=== PATIENT | male | born 1955 | race African-American/Black ===

== ENCOUNTER 2021-09-17 09:57 | Outpatient (CLI) | payer MEDICARE, MEDICAID | END 2021-09-17 09:58 | disposition home or self-care (01) | LOC: BICULT 09:57 | PROVIDERS: ATTEND Internal Medicine Nephrology | DX: I12.9 Hypertensive chronic kidney disease with stage 1 through stage 4 chronic kidney disease, or unspecified chronic kidney disease (principal); N18.30 Chronic kidney disease, stage 3 unspecified; N28.1 Cyst of kidney, acquired | CPT/HCPCS: 76770 ==

== ENCOUNTER 2022-12-01 12:45 | Emergency (ER) | payer MEDICARE, OTHER ==
[2022-12-01] MEDS ORDERED: Ondansetron PF 4 MG/2 ML Vial ONE (13:40)
[2022-12-01] MEDS ORDERED: Morphine 4 MG/ML VIAL ONE (13:40)
[2022-12-01 13:59] LABS: #Basophils 0.1 thou/uL (0.0-0.2); #Eosinphils 0.1 thou/uL (0.0-0.7); #Monocytes 0.6 thou/uL (0.11-0.59); #Neutrophils 7.1 thou/uL (1.40-6.50); %Basophils 0.8 % (0.0-1.0); %Lymphocytes 14.6 % (21.0-51.0); %Monocytes 6.8 % (0.0-10.0); %Neutrophils 76.4 % (42.0-75.0); Hemoglobin 13.1 g/dL (14.0-18.0); Mean Corpuscular HGB CONC 32.9 g/dL (32.0-36.0); Mean Corpuscular Hemoglobin 34.5 pg (27.0-31.0); Mean Corpuscular Volume 104.7 fl (78.0-98.0); Mean Platelet Volume 9.9 fL (7.4-10.4); Platelet Count 199 10x3/uL (130-400); RBC Distribution Width 13.9 % (11.5-14.5); White Blood Cell (WBC) Count 9.3 10x3/uL (4.8-10.8)
[2022-12-01 14:24] LABS: ALT (SGPT) 16 U/L (8-55); AST (SGOT) 27 U/L (5-34); Albumin 3.1 g/dL (3.4-4.8); Alkaline Phosphatase 87 U/L (40-110); Anion Gap 15 mmol/L (10-20); BUN (Urea Nitrogen) 21 mg/dL (8.4-25.7); Bilirubin, Total 0.7 mg/dL (0.2-1.2); Calc. Creatinine Clearance 0 mL/min (70-130); Calcium 8.8 mg/dL (7.8-10.44); Carbon Dioxide 19 mmol/L (23-31); Chloride 101 mmol/L (98-107); Estimated GFR 76; Globulin 4.6 g/dL (2.4-3.5); Glucose 85 mg/dL (80-115); Potassium 3.8 mmol/L (3.5-5.1); Protein, Total 7.7 g/dL (5.8-8.1); Sodium 131 mmol/L (136-145)
[2022-12-01 14:25] LABS: Acetaminophen Less than 10 mcg/mL (10.0-30.0); Alcohol 45.3 mg/dL (Less than 10); Salicylate Less than 8.0 mg/dL (15.0-30.0)
[2022-12-01] MEDS ORDERED: Diazepam 10 MG/2 ML SYRINGE ONE (17:19)
== END 2022-12-01 19:30 | disposition home or self-care (01) ==
LOC: ERS 12:45
DX: S50.02XA Contusion of left elbow, initial encounter (principal); S70.02XA Contusion of left hip, initial encounter; M25.562 Pain in left knee; I10 Essential (primary) hypertension; E87.1 Hypo-osmolality and hyponatremia; I12.9 Hypertensive chronic kidney disease with stage 1 through stage 4 chronic kidney disease, or unspecified chronic kidney disease; N18.30 Chronic kidney disease, stage 3 unspecified; F17.210 Nicotine dependence, cigarettes, uncomplicated; Z79.899 Other long term (current) drug therapy
CPT/HCPCS: 36415; 80053; 80307; 84484; 85025; 93005; 96361; 96374; 96375; J2270; J2405; J3360

== ENCOUNTER 2023-05-31 11:07 | Inpatient (IN) | payer MEDICARE, MEDICAID ==
[2023-05-31] MEDS ORDERED: Iopamidol-370 76% 500 ML MDV (1 ML CHARGE) ONE (11:19)
[2023-05-31] MEDS ORDERED: Folic Acid 1 MG TAB ONE (11:27)
[2023-05-31] MEDS ORDERED: Thiamine HCl 200 MG/2 ML VIAL ONE (11:28)
[2023-05-31 11:55] LABS: #Eosinphils 0.1 thou/uL (0.0-0.7); #Monocytes 0.5 thou/uL (0.11-0.59); #Neutrophils 6.7 thou/uL (1.40-6.50); %Basophils 0.3 % (0.0-1.0); %Eosinophils 0.9 % (0.0-10.0); %Monocytes 5.8 % (0.0-10.0); %Neutrophils 75.4 % (42.0-75.0); Hematocrit 47.2 % (42.0-52.0); Hemoglobin 16.2 g/dL (14.0-18.0); Mean Corpuscular HGB CONC 34.3 g/dL (32.0-36.0); Mean Corpuscular Hemoglobin 33.2 pg (27.0-31.0); Mean Corpuscular Volume 96.7 fl (78.0-98.0); Mean Platelet Volume 9.3 fL (7.4-10.4); Platelet Count 133 10x3/uL (130-400); RBC Distribution Width 12.3 % (11.5-14.5); Red Blood Cell (RBC) Count 4.88 mill/uL (4.70-6.10); White Blood Cell (WBC) Count 8.9 10x3/uL (4.8-10.8)
[2023-05-31 11:55] LABS: Bilirubin Negative (Negative); Blood, Urine Negative (Negative); Glucose, Urine (Dipstick) Negative (Negative); Ketone, Urine Negative (Negative); Leukocyte Moderate (Negative); Nitrite Negative (Negative); Protein, Urine (Dipstick) Negative (Neg-Trace); Urobilinogen 0.2 mg/dL (Less than 2)
[2023-05-31 12:00] LABS: Clarity Hazy (Clear)
[2023-05-31 12:03] LABS: Bacteria/HPF 2+ HPF (None Seen); CAUTI Indications for Culture Alt mental st,lethar; RBC/HPF None Seen HPF (0-3); Squamous Epithelial 0-3 HPF (0-3)
[2023-05-31 12:04] LABS: Urine Culture Reflex Yes Yes
[2023-05-31 12:14] LABS: Amphetamine Not Detected (NotDetected); Barbiturates Screen Not Detected (NotDetected); Benzodiazepine Screen Not Detected (NotDetected); Cocaine Metabolite Screen Not Detected (NotDetected); Methadone Not Detected (NotDetected); Methamphetamine Not Detected (NotDetected); Opiate Screen Not Detected (NotDetected); Oxycodone Screen Not Detected (NotDetected); Phencyclidine (PCP) Not Detected (NotDetected); THC/Cannabinoid Screen Not Detected (NotDetected); Tricyclic Screen Not Detected (NotDetected)
[2023-05-31 12:15] LABS: Troponin I Less than 0.010 ng/mL (< 0.028)
[2023-05-31 12:16] LABS: ALT (SGPT) 18 U/L (8-55); AST (SGOT) 28 U/L (5-34); Albumin 3.3 g/dL (3.4-4.8); Alkaline Phosphatase 81 U/L (40-110); Anion Gap 17 mmol/L (10-20); BUN (Urea Nitrogen) 97 mg/dL (8.4-25.7); Bilirubin, Total 0.5 mg/dL (0.2-1.2); Calc. Creatinine Clearance 0 mL/min (70-130); Calcium 8.8 mg/dL (7.8-10.44); Carbon Dioxide 17 mmol/L (23-31); Chloride 104 mmol/L (98-107); Estimated GFR 34; Globulin 4.5 g/dL (2.4-3.5); Glucose 84 mg/dL (80-115); Lipase 41 U/L (8-78); Magnesium 1.8 mg/dL (1.6-2.6); Phosphorus 3.6 mg/dL (2.3-4.7); Potassium 4.4 mmol/L (3.5-5.1); Protein, Total 7.8 g/dL (5.8-8.1); Sodium 134 mmol/L (136-145)
[2023-05-31 12:18] LABS: Acetaminophen Less than 10 mcg/mL (10.0-30.0); Alcohol 21.1 mg/dL (Less than 10); Salicylate Less than 8.0 mg/dL (15.0-30.0)
[2023-05-31] MEDS ORDERED: Lorazepam 1 MG TAB PO PRN (13:50)
[2023-05-31] MEDS ORDERED: Lorazepam 2 MG/ML VIAL IVPB PRN (13:50)
[2023-05-31] MEDS ORDERED: Acetaminophen 325 MG TAB PO PRN (13:50)
[2023-05-31] MEDS ORDERED: Ondansetron PF 4 MG/2 ML Vial IVP PRN (13:50)
[2023-05-31] MEDS ORDERED: Ondansetron ODT 4 MG TAB PO PRN ×2 (13:50)
[2023-05-31] MEDS ORDERED: cefTRIAXone\\ROCEPHIN 1 GM in Sodium Chloride 0.9% 100 ML IVPB SCH (14:00)
[2023-05-31] MEDS ORDERED: Electrolyte Replacement Protocol 1 EACH FS SCH (14:00)
[2023-05-31] MEDS ORDERED: Lactated Ringer's 500 ML IV SCH (14:00)
[2023-05-31] MEDS ORDERED: Lorazepam 1 MG TAB PO SCH (14:00)
[2023-05-31 14:59] LABS: Lactic Acid 1.8 mmol/L (0.5-2.2)
[2023-05-31] MEDS ORDERED: Mineral Oil ENEMA PR SCH (15:00)
[2023-05-31] MEDS ORDERED: Polyethylene Glycol 3350 17 GM Packet PO SCH (15:00)
[2023-05-31 15:16] LABS: Phosphorus 3.8 mg/dL (2.3-4.7)
[2023-05-31] MEDS ORDERED: Multivit, Therapeutic 1 TAB PO SCH (15:30)
[2023-05-31 15:36] LABS: Magnesium 1.7 mg/dL (1.6-2.6)
[2023-05-31] MEDS ORDERED: cefTRIAXone (ROCEPHIN) 2 GM VIAL ONE (15:54)
[2023-05-31] MEDS ORDERED: Sodium Chloride 0.9% 100 ML ONE (15:54)
[2023-05-31] MEDS ORDERED: Magnesium 2 GM/50 ML(in water) 2 GM in Premix 1 BAG IVPB SCH (16:15)
[2023-05-31] MEDS ORDERED: Electrolyte Replacement Protocol FS PRN (16:15)
[2023-05-31] MEDS ORDERED: Nystatin 100,000 Units/mL UDCUP SSW SCH (17:00)
[2023-05-31] MEDS: Lactated Ringer's 1,000 ML IV SCH (17:14)
[2023-05-31] MEDS ORDERED: Lidocaine Jelly 2% Urojet 10 ML ONE (17:55)
[2023-05-31] MEDS: Thiamine HCl 500 MG, Admixture Fee 1 EACH in Sodium Chloride 0.9% 250 ML 250 ML IVPB SCH (18:08)
[2023-05-31 18:35] LABS: SARS-CoV-2 NAA Rapid Test Not Detected (NotDetected)
[2023-05-31] MEDS ORDERED: Lidocaine 2% 6 ML (Jelly) SYR TOP SCH (19:30)
[2023-05-31] MEDS ORDERED: Famotidine 20 MG TAB PO SCH (21:00)
[2023-05-31] MEDS ORDERED: Cholecalciferol 1,000 UNITS (25 MCG) TAB PO SCH (21:00)
[2023-05-31] MEDS ORDERED: pyridOXINE 50 MG (B6) TAB PO SCH (21:00)
[2023-05-31] MEDS: Famotidine/PF 20 mg/2ml Vial SLOW IVP SCH (21:03)
[2023-05-31] MEDS: Nystatin 500,000 UNITS/5 ML UDCUP SSW SCH (21:12)
[2023-06-01] MEDS: Lactated Ringer's 1,000 ML IV SCH (00:24)
[2023-06-01] MEDS ORDERED: Ipratropium/Albuterol 3 ML NEB NEB PRN (00:34)
[2023-06-01] MEDS ORDERED: Dextrose 5 % And 0.9 % NaCl 1,000 ML IV SCH (00:45)
[2023-06-01] MEDS ORDERED: Fleet Saline Enema 133 ML BOT PR SCH (00:45)
[2023-06-01] MEDS: Nicotine 14 MG PATCH TD SCH ×2 (01:38→18:12)
[2023-06-01] MEDS: Thiamine HCl 500 MG, Admixture Fee 1 EACH in Sodium Chloride 0.9% 250 ML 250 ML IVPB SCH ×3 (03:10→18:12)
[2023-06-01 06:32] LABS: #Eosinphils 0.1 thou/uL (0.0-0.7); #Monocytes 0.4 thou/uL (0.11-0.59); %Basophils 0.3 % (0.0-1.0); %Eosinophils 0.6 % (0.0-10.0); %Lymphocytes 12.4 % (21.0-51.0); %Monocytes 5.1 % (0.0-10.0); %Neutrophils 81.3 % (42.0-75.0); Hematocrit 39.3 % (42.0-52.0); Mean Corpuscular HGB CONC 33.3 g/dL (32.0-36.0); Mean Corpuscular Hemoglobin 32.3 pg (27.0-31.0); Mean Platelet Volume 10.1 fL (7.4-10.4); Platelet Count 150 10x3/uL (130-400); RBC Distribution Width 12.5 % (11.5-14.5); Red Blood Cell (RBC) Count 4.05 mill/uL (4.70-6.10); White Blood Cell (WBC) Count 8.7 10x3/uL (4.8-10.8)
[2023-06-01 06:34] LABS: Hemoglobin 13.1 g/dL (14.0-18.0)
[2023-06-01 08:03] LABS: HIV (1/2) Antibody/Antigen Non-Reactive (NonReactive)
[2023-06-01 08:09] LABS: ALT (SGPT) 15 U/L (8-55); AST (SGOT) 24 U/L (5-34); Albumin 2.7 g/dL (3.4-4.8); Alkaline Phosphatase 66 U/L (40-110); Anion Gap 18 mmol/L (10-20); BUN (Urea Nitrogen) 74 mg/dL (8.4-25.7); Bilirubin, Total 0.4 mg/dL (0.2-1.2); Calc. Creatinine Clearance 19 mL/min (70-130); Calcium 8.2 mg/dL (7.8-10.44); Carbon Dioxide 16 mmol/L (23-31); Chloride 109 mmol/L (98-107); Estimated GFR 41; Globulin 3.5 g/dL (2.4-3.5); Glucose 81 mg/dL (80-115); Magnesium 2.3 mg/dL (1.6-2.6); Phosphorus 4.8 mg/dL (2.3-4.7); Potassium 3.6 mmol/L (3.5-5.1); Protein, Total 6.2 g/dL (5.8-8.1); Sodium 139 mmol/L (136-145)
[2023-06-01] MEDS: Nystatin 500,000 UNITS/5 ML UDCUP SSW SCH ×4 (08:40→20:24)
[2023-06-01] MEDS ORDERED: Ascorbic Acid 500 mg Chewable Tablet PO SCH (09:00)
[2023-06-01] MEDS ORDERED: Multivit, Therapeutic 1 TAB PO SCH (09:00)
[2023-06-01] MEDS ORDERED: Aspirin 81 mg Enteric Coated Tablet PO SCH (09:00)
[2023-06-01] MEDS ORDERED: Folic Acid 1 MG TAB PO SCH (09:00)
[2023-06-01] MEDS ORDERED: Polyethylene Glycol 3350 17 GM Packet PO SCH (09:00)
[2023-06-01] MEDS ORDERED: Enoxaparin 40 MG (0.4 mL) SYRINGE SC SCH (09:00)
[2023-06-01] MEDS ORDERED: Lorazepam 2 MG/ML VIAL SLOW IVP PRN (09:19)
[2023-06-01 10:59] LABS: Syphilis Antibody Nonreactive (Nonreactive); Syphilis Antibody Index 0.09 S/CO (<1.00 Non-Reactive)
[2023-06-01] MEDS ORDERED: Lorazepam 1 MG TAB PO PRN (13:50)
[2023-06-01] MEDS: Sodium Bicarbonate Tab 325 MG TAB PO SCH ×2 (15:01→20:24)
[2023-06-01] MEDS: D5W-AA 4.25% with LYTES 1,000 ML IV SCH (16:57)
[2023-06-01] MEDS: cefTRIAXone\\ROCEPHIN 2 GM in Sodium Chloride 0.9% 100 ML IVPB SCH (16:57)
[2023-06-02] MEDS: Thiamine HCl 500 MG, Admixture Fee 1 EACH in Sodium Chloride 0.9% 250 ML 250 ML IVPB SCH ×2 (01:42→13:28)
[2023-06-02 04:18] LABS: #Eosinphils 0.2 thou/uL (0.0-0.7); #Monocytes 0.4 thou/uL (0.11-0.59); #Neutrophils 3.9 thou/uL (1.40-6.50); %Basophils 0.3 % (0.0-1.0); %Eosinophils 2.5 % (0.0-10.0); %Lymphocytes 26.4 % (21.0-51.0); %Neutrophils 64.5 % (42.0-75.0); Hematocrit 35.7 % (42.0-52.0); Hemoglobin 11.8 g/dL (14.0-18.0); Mean Corpuscular HGB CONC 33.1 g/dL (32.0-36.0); Mean Corpuscular Hemoglobin 32.3 pg (27.0-31.0); Mean Corpuscular Volume 97.8 fl (78.0-98.0); Mean Platelet Volume 9.9 fL (7.4-10.4); Platelet Count 150 10x3/uL (130-400); RBC Distribution Width 12.7 % (11.5-14.5); Red Blood Cell (RBC) Count 3.65 mill/uL (4.70-6.10)
[2023-06-02 04:28] LABS: Campy jejuni + coli by PCR Negative (Negative); STEC Shiga Toxin 1+2 Negative (Negative); Salmonella spp. by PCR Negative (Negative); Shigella spp + EIEC by PCR Negative (Negative)
[2023-06-02 05:04] LABS: Phosphorus 3.6 mg/dL (2.3-4.7)
[2023-06-02 05:06] LABS: ALT (SGPT) 11 U/L (8-55); AST (SGOT) 18 U/L (5-34); Albumin 2.5 g/dL (3.4-4.8); Alkaline Phosphatase 55 U/L (40-110); Anion Gap 11 mmol/L (10-20); BUN (Urea Nitrogen) 59 mg/dL (8.4-25.7); Bilirubin, Total 0.3 mg/dL (0.2-1.2); Calc. Creatinine Clearance 22 mL/min (70-130); Calcium 8.1 mg/dL (7.8-10.44); Carbon Dioxide 18 mmol/L (23-31); Chloride 115 mmol/L (98-107); Estimated GFR 48; Globulin 3.3 g/dL (2.4-3.5); Glucose 100 mg/dL (80-115); Magnesium 1.7 mg/dL (1.6-2.6); Potassium 3.5 mmol/L (3.5-5.1); Protein, Total 5.8 g/dL (5.8-8.1); Sodium 140 mmol/L (136-145)
[2023-06-02] MEDS: D5W-AA 4.25% with LYTES 1,000 ML IV SCH ×2 (05:44→16:33)
[2023-06-02] MEDS ORDERED: Magnesium 2 GM/50 ML(in water) 2 GM in Premix 1 BAG IVPB SCH (08:00)
[2023-06-02] MEDS: Aspirin 300 MG Suppository PR SCH (09:08)
[2023-06-02] MEDS: Nystatin 500,000 UNITS/5 ML UDCUP SSW SCH ×4 (09:08→20:37)
[2023-06-02] MEDS: Sodium Bicarbonate Tab 325 MG TAB PO SCH ×3 (09:09→20:37)
[2023-06-02] MEDS: Potassium Chloride 20 MEQ in Premix 1 BAG IVPB SCH ×2 (09:09→10:10)
[2023-06-02] MEDS ORDERED: Lorazepam 1 MG TAB PO PRN (13:50)
[2023-06-02] MEDS ORDERED: Lorazepam 0.5 MG TAB PO SCH (14:00)
[2023-06-02] MEDS: cefTRIAXone\\ROCEPHIN 2 GM in Sodium Chloride 0.9% 100 ML IVPB SCH (15:23)
[2023-06-02 16:14] LABS: Potassium 4.1 mmol/L (3.5-5.1)
[2023-06-02] MEDS: Nicotine 14 MG PATCH TD SCH (18:35)
[2023-06-02] MEDS: Famotidine/PF 20 mg/2ml Vial SLOW IVP SCH (20:45)
[2023-06-03] MEDS: D5W-AA 4.25% with LYTES 1,000 ML IV SCH ×2 (05:25→18:42)
[2023-06-03 07:58] LABS: #Eosinphils 0.2 thou/uL (0.0-0.7); #Monocytes 0.5 thou/uL (0.11-0.59); #Neutrophils 5.4 thou/uL (1.40-6.50); %Basophils 0.4 % (0.0-1.0); %Eosinophils 2.4 % (0.0-10.0); %Lymphocytes 23.6 % (21.0-51.0); %Neutrophils 67.1 % (42.0-75.0); Hematocrit 41.7 % (42.0-52.0); Hemoglobin 13.8 g/dL (14.0-18.0); Mean Corpuscular HGB CONC 33.1 g/dL (32.0-36.0); Mean Corpuscular Hemoglobin 32.9 pg (27.0-31.0); Mean Corpuscular Volume 99.5 fl (78.0-98.0); Platelet Count 167 10x3/uL (130-400); RBC Distribution Width 12.6 % (11.5-14.5); Red Blood Cell (RBC) Count 4.19 mill/uL (4.70-6.10)
[2023-06-03 08:18] LABS: Phosphorus 3.8 mg/dL (2.3-4.7)
[2023-06-03 08:22] LABS: ALT (SGPT) 11 U/L (8-55); AST (SGOT) 23 U/L (5-34); Albumin 2.6 g/dL (3.4-4.8); Alkaline Phosphatase 60 U/L (40-110); Anion Gap 14 mmol/L (10-20); BUN (Urea Nitrogen) 57 mg/dL (8.4-25.7); Bilirubin, Total 0.4 mg/dL (0.2-1.2); Calc. Creatinine Clearance 27 mL/min (70-130); Calcium 8.4 mg/dL (7.8-10.44); Carbon Dioxide 17 mmol/L (23-31); Chloride 113 mmol/L (98-107); Estimated GFR 56; Globulin 3.8 g/dL (2.4-3.5); Glucose 96 mg/dL (80-115); Magnesium 2.3 mg/dL (1.6-2.6); Potassium 4.3 mmol/L (3.5-5.1); Protein, Total 6.4 g/dL (5.8-8.1); Sodium 140 mmol/L (136-145)
[2023-06-03] MEDS: Aspirin 300 MG Suppository PR SCH (08:23)
[2023-06-03] MEDS: Sodium Bicarbonate Tab 325 MG TAB PO SCH ×3 (08:23→20:39)
[2023-06-03] MEDS: Nystatin 500,000 UNITS/5 ML UDCUP SSW SCH ×4 (08:23→20:38)
[2023-06-03] MEDS ORDERED: PROPOFOL 20 ML ONE (10:03)
[2023-06-03] MEDS ORDERED: fentaNYL 50 mcg/mL 1 mL Vial ONE (10:53)
[2023-06-03] MEDS: Thiamine HCl 250 MG, Admixture Fee 1 EACH in Sodium Chloride 0.9% 100 ML IVPB SCH (12:18)
[2023-06-03 13:45] VITALS: BMI 12.7
[2023-06-03] MEDS ORDERED: Lorazepam 0.5 MG TAB PO PRN (13:50)
[2023-06-03] MEDS: cefTRIAXone\\ROCEPHIN 2 GM in Sodium Chloride 0.9% 100 ML IVPB SCH (16:27)
[2023-06-03] MEDS: Nicotine 14 MG PATCH TD SCH (18:21)
[2023-06-04] MEDS: D5W-AA 4.25% with LYTES 1,000 ML IV SCH ×2 (06:46→23:40)
[2023-06-04] MEDS: Nystatin 500,000 UNITS/5 ML UDCUP SSW SCH ×3 (09:34→16:31)
[2023-06-04] MEDS: Thiamine HCl 250 MG, Admixture Fee 1 EACH in Sodium Chloride 0.9% 100 ML IVPB SCH (09:58)
[2023-06-04] MEDS: Sodium Bicarbonate Tab 325 MG TAB PO SCH ×3 (09:58→19:58)
[2023-06-04] MEDS: Aspirin 300 MG Suppository PR SCH (10:00)
[2023-06-04 13:22] LABS: #Monocytes 0.6 thou/uL (0.11-0.59); #Neutrophils 10.3 thou/uL (1.40-6.50); %Basophils 0.1 % (0.0-1.0); %Eosinophils 0.1 % (0.0-10.0); %Lymphocytes 7.2 % (21.0-51.0); %Neutrophils 87.2 % (42.0-75.0); Hematocrit 40.4 % (42.0-52.0); Hemoglobin 13.7 g/dL (14.0-18.0); Mean Corpuscular HGB CONC 33.9 g/dL (32.0-36.0); Mean Corpuscular Hemoglobin 32.9 pg (27.0-31.0); Mean Corpuscular Volume 97.1 fl (78.0-98.0); Mean Platelet Volume 10.1 fL (7.4-10.4); Platelet Count 170 10x3/uL (130-400); RBC Distribution Width 12.4 % (11.5-14.5); Red Blood Cell (RBC) Count 4.16 mill/uL (4.70-6.10); White Blood Cell (WBC) Count 11.8 10x3/uL (4.8-10.8)
[2023-06-04 13:43] LABS: Phosphorus 4.1 mg/dL (2.3-4.7)
[2023-06-04 13:45] LABS: ALT (SGPT) 11 U/L (8-55); AST (SGOT) 20 U/L (5-34); Albumin 2.7 g/dL (3.4-4.8); Alkaline Phosphatase 55 U/L (40-110); Anion Gap 13 mmol/L (10-20); BUN (Urea Nitrogen) 58 mg/dL (8.4-25.7); Bilirubin, Total 0.4 mg/dL (0.2-1.2); Calc. Creatinine Clearance 31 mL/min (70-130); Calcium 8.3 mg/dL (7.8-10.44); Carbon Dioxide 20 mmol/L (23-31); Chloride 108 mmol/L (98-107); Estimated GFR 66; Globulin 3.7 g/dL (2.4-3.5); Glucose 94 mg/dL (80-115); Magnesium 1.8 mg/dL (1.6-2.6); Potassium 4.6 mmol/L (3.5-5.1); Protein, Total 6.4 g/dL (5.8-8.1); Sodium 136 mmol/L (136-145)
[2023-06-04] MEDS: Nicotine 14 MG PATCH TD SCH (17:49)
[2023-06-04] MEDS: Famotidine/PF 20 mg/2ml Vial SLOW IVP SCH (20:56)
[2023-06-04] MEDS ORDERED: Magnesium 2 GM/50 ML(in water) 2 GM in Premix 1 BAG IVPB SCH (22:00)
[2023-06-05 05:44] LABS: #Eosinphils 0.1 thou/uL (0.0-0.7); #Monocytes 0.7 thou/uL (0.11-0.59); #Neutrophils 7.1 thou/uL (1.40-6.50); %Basophils 0.1 % (0.0-1.0); %Eosinophils 0.8 % (0.0-10.0); %Lymphocytes 15.6 % (21.0-51.0); %Monocytes 7.3 % (0.0-10.0); %Neutrophils 75.7 % (42.0-75.0); Hemoglobin 13.1 g/dL (14.0-18.0); Mean Corpuscular HGB CONC 33.6 g/dL (32.0-36.0); Mean Corpuscular Hemoglobin 32.9 pg (27.0-31.0); Mean Platelet Volume 10.1 fL (7.4-10.4); Platelet Count 170 10x3/uL (130-400); RBC Distribution Width 12.4 % (11.5-14.5); Red Blood Cell (RBC) Count 3.98 mill/uL (4.70-6.10); White Blood Cell (WBC) Count 9.4 10x3/uL (4.8-10.8)
[2023-06-05 06:27] LABS: ALT (SGPT) 9 U/L (8-55); AST (SGOT) 17 U/L (5-34); Albumin 2.5 g/dL (3.4-4.8); Alkaline Phosphatase 48 U/L (40-110); Anion Gap 14 mmol/L (10-20); BUN (Urea Nitrogen) 59 mg/dL (8.4-25.7); Bilirubin, Total 0.4 mg/dL (0.2-1.2); Calc. Creatinine Clearance 31 mL/min (70-130); Carbon Dioxide 17 mmol/L (23-31); Chloride 109 mmol/L (98-107); Estimated GFR 67; Globulin 3.6 g/dL (2.4-3.5); Glucose 106 mg/dL (80-115); Magnesium 2.3 mg/dL (1.6-2.6); Potassium 4.3 mmol/L (3.5-5.1); Protein, Total 6.1 g/dL (5.8-8.1); Sodium 136 mmol/L (136-145)
[2023-06-05 06:33] LABS: Phosphorus 3.7 mg/dL (2.3-4.7)
[2023-06-05] MEDS: Thiamine HCl 250 MG, Admixture Fee 1 EACH in Sodium Chloride 0.9% 100 ML IVPB SCH (09:37)
[2023-06-05] MEDS: Sodium Bicarbonate Tab 325 MG TAB PO SCH ×3 (09:40→22:21)
[2023-06-05] MEDS: D5W-AA 4.25% with LYTES 1,000 ML IV SCH (11:47)
[2023-06-05] MEDS: Acetaminophen 650 MG Suppository PR PRN ×2 (12:51→22:31)
[2023-06-05] MEDS: Nicotine 14 MG PATCH TD SCH (17:13)
[2023-06-06] MEDS: D5W-AA 4.25% with LYTES 1,000 ML IV SCH ×2 (02:45→16:24)
[2023-06-06 04:38] LABS: #Eosinphils 0.1 thou/uL (0.0-0.7); #Monocytes 0.9 thou/uL (0.11-0.59); #Neutrophils 8.2 thou/uL (1.40-6.50); %Basophils 0.2 % (0.0-1.0); %Eosinophils 0.5 % (0.0-10.0); %Lymphocytes 14.8 % (21.0-51.0); %Monocytes 7.8 % (0.0-10.0); %Neutrophils 75.9 % (42.0-75.0); Hematocrit 37.1 % (42.0-52.0); Hemoglobin 12.8 g/dL (14.0-18.0); Mean Corpuscular HGB CONC 34.5 g/dL (32.0-36.0); Mean Corpuscular Hemoglobin 33.2 pg (27.0-31.0); Mean Corpuscular Volume 96.4 fl (78.0-98.0); Mean Platelet Volume 10.2 fL (7.4-10.4); Platelet Count 219 10x3/uL (130-400); RBC Distribution Width 12.4 % (11.5-14.5); Red Blood Cell (RBC) Count 3.85 mill/uL (4.70-6.10); White Blood Cell (WBC) Count 10.9 10x3/uL (4.8-10.8)
[2023-06-06 05:08] LABS: Phosphorus 3.8 mg/dL (2.3-4.7)
[2023-06-06 05:25] LABS: BUN (Urea Nitrogen) 62 mg/dL (8.4-25.7); Calc. Creatinine Clearance 32 mL/min (70-130); Carbon Dioxide 18 mmol/L (23-31); Chloride 106 mmol/L (98-107); Potassium 4.2 mmol/L (3.5-5.1); Sodium 136 mmol/L (136-145)
[2023-06-06 05:26] LABS: ALT (SGPT) 14 U/L (8-55); AST (SGOT) 24 U/L (5-34); Albumin 2.3 g/dL (3.4-4.8); Alkaline Phosphatase 50 U/L (40-110); Bilirubin, Total 0.4 mg/dL (0.2-1.2); Calcium 7.7 mg/dL (7.8-10.44); Estimated GFR 70; Globulin 3.7 g/dL (2.4-3.5); Glucose 91 mg/dL (80-115); Magnesium 2.1 mg/dL (1.6-2.6)
[2023-06-06 05:29] LABS: Anion Gap 16 mmol/L (10-20)
[2023-06-06] MEDS: Sodium Bicarbonate Tab 325 MG TAB PO SCH ×3 (09:10→20:05)
[2023-06-06] MEDS: Thiamine HCl 250 MG, Admixture Fee 1 EACH in Sodium Chloride 0.9% 100 ML IVPB SCH (09:10)
[2023-06-06] MEDS: Nicotine 14 MG PATCH TD SCH (16:24)
[2023-06-06] MEDS: Famotidine/PF 20 mg/2ml Vial SLOW IVP SCH (20:16)
[2023-06-07] MEDS: Acetaminophen 325 MG TAB PER TUBE PRN (02:03)
[2023-06-07] MEDS: D5W-AA 4.25% with LYTES 1,000 ML IV SCH ×2 (02:11→05:17)
[2023-06-07 04:32] LABS: #Eosinphils 0.3 thou/uL (0.0-0.7); #Monocytes 0.8 thou/uL (0.11-0.59); #Neutrophils 7.5 thou/uL (1.40-6.50); %Basophils 0.1 % (0.0-1.0); %Eosinophils 2.9 % (0.0-10.0); %Lymphocytes 10.8 % (21.0-51.0); %Monocytes 8.2 % (0.0-10.0); %Neutrophils 77.4 % (42.0-75.0); Hematocrit 37.7 % (42.0-52.0); Hemoglobin 13.2 g/dL (14.0-18.0); Mean Corpuscular Hemoglobin 33.2 pg (27.0-31.0); Mean Corpuscular Volume 94.7 fl (78.0-98.0); Mean Platelet Volume 10.3 fL (7.4-10.4); Platelet Count 251 10x3/uL (130-400); RBC Distribution Width 12.3 % (11.5-14.5); Red Blood Cell (RBC) Count 3.98 mill/uL (4.70-6.10); White Blood Cell (WBC) Count 9.7 10x3/uL (4.8-10.8)
[2023-06-07 05:00] LABS: ALT (SGPT) 25 U/L (8-55); AST (SGOT) 44 U/L (5-34); Albumin 2.4 g/dL (3.4-4.8); Alkaline Phosphatase 59 U/L (40-110); Anion Gap 12 mmol/L (10-20); BUN (Urea Nitrogen) 73 mg/dL (8.4-25.7); Bilirubin, Total 0.3 mg/dL (0.2-1.2); Calc. Creatinine Clearance 36 mL/min (70-130); Carbon Dioxide 21 mmol/L (23-31); Chloride 104 mmol/L (98-107); Estimated GFR 78; Globulin 3.7 g/dL (2.4-3.5); Glucose 108 mg/dL (80-115); Potassium 4.8 mmol/L (3.5-5.1); Protein, Total 6.1 g/dL (5.8-8.1); Sodium 132 mmol/L (136-145)
[2023-06-07] MEDS: Thiamine HCl 250 MG, Admixture Fee 1 EACH in Sodium Chloride 0.9% 100 ML IVPB SCH (09:14)
[2023-06-07] MEDS: Sodium Bicarbonate Tab 325 MG TAB PO SCH ×4 (09:14→22:40)
[2023-06-07] MEDS: Nicotine 14 MG PATCH TD SCH (15:35)
[2023-06-07] MEDS: Fluticasone Propionate Nasal Spray 16 gm Bottle NASAL SCH ×2 (22:32→22:40)
[2023-06-08 05:39] LABS: #Eosinphils 0.3 thou/uL (0.0-0.7); #Monocytes 0.9 thou/uL (0.11-0.59); %Basophils 0.3 % (0.0-1.0); %Eosinophils 2.5 % (0.0-10.0); %Lymphocytes 14.6 % (21.0-51.0); %Monocytes 8.4 % (0.0-10.0); %Neutrophils 73.6 % (42.0-75.0); Hematocrit 39.5 % (42.0-52.0); Hemoglobin 13.6 g/dL (14.0-18.0); Mean Corpuscular HGB CONC 34.4 g/dL (32.0-36.0); Mean Corpuscular Hemoglobin 32.4 pg (27.0-31.0); Platelet Count 303 10x3/uL (130-400); RBC Distribution Width 12.5 % (11.5-14.5); White Blood Cell (WBC) Count 10.8 10x3/uL (4.8-10.8)
[2023-06-08 05:53] LABS: ALT (SGPT) 46 U/L (8-55); AST (SGOT) 85 U/L (5-34); Albumin 2.4 g/dL (3.4-4.8); Alkaline Phosphatase 87 U/L (40-110); Anion Gap 16 mmol/L (10-20); BUN (Urea Nitrogen) 72 mg/dL (8.4-25.7); Bilirubin, Total 0.4 mg/dL (0.2-1.2); Calc. Creatinine Clearance 35 mL/min (70-130); Calcium 8.1 mg/dL (7.8-10.44); Carbon Dioxide 20 mmol/L (23-31); Chloride 104 mmol/L (98-107); Estimated GFR 76; Glucose 99 mg/dL (80-115); Potassium 4.8 mmol/L (3.5-5.1); Protein, Total 6.4 g/dL (5.8-8.1); Sodium 135 mmol/L (136-145)
[2023-06-08] MEDS ORDERED: Thiamine HCl 200 MG/2 ML VIAL SLOW IVP SCH (09:00)
[2023-06-08] MEDS: Sodium Bicarbonate Tab 325 MG TAB PO SCH ×3 (09:06→19:53)
[2023-06-08] MEDS: Fluticasone Propionate Nasal Spray 16 gm Bottle NASAL SCH ×2 (12:51→19:53)
[2023-06-08] MEDS: Nicotine 14 MG PATCH TD SCH (17:51)
[2023-06-08] MEDS: Famotidine/PF 20 mg/2ml Vial SLOW IVP SCH (19:52)
[2023-06-09] MEDS: Acetaminophen 325 MG TAB PER TUBE PRN (01:18)
[2023-06-09 06:20] LABS: #Eosinphils 0.1 thou/uL (0.0-0.7); #Monocytes 0.7 thou/uL (0.11-0.59); #Neutrophils 6.1 thou/uL (1.40-6.50); %Basophils 0.2 % (0.0-1.0); %Eosinophils 1.6 % (0.0-10.0); %Lymphocytes 15.3 % (21.0-51.0); %Monocytes 8.8 % (0.0-10.0); %Neutrophils 73.5 % (42.0-75.0); Hematocrit 37.8 % (42.0-52.0); Hemoglobin 12.7 g/dL (14.0-18.0); Mean Corpuscular HGB CONC 33.6 g/dL (32.0-36.0); Mean Corpuscular Hemoglobin 32.2 pg (27.0-31.0); Mean Corpuscular Volume 95.9 fl (78.0-98.0); Platelet Count 293 10x3/uL (130-400); RBC Distribution Width 12.6 % (11.5-14.5); Red Blood Cell (RBC) Count 3.94 mill/uL (4.70-6.10); White Blood Cell (WBC) Count 8.3 10x3/uL (4.8-10.8)
[2023-06-09 06:43] LABS: ALT (SGPT) 54 U/L (8-55); AST (SGOT) 79 U/L (5-34); Albumin 2.4 g/dL (3.4-4.8); Alkaline Phosphatase 88 U/L (40-110); Anion Gap 10 mmol/L (10-20); BUN (Urea Nitrogen) 63 mg/dL (8.4-25.7); Bilirubin, Total 0.4 mg/dL (0.2-1.2); Calc. Creatinine Clearance 33 mL/min (70-130); Calcium 8.2 mg/dL (7.8-10.44); Carbon Dioxide 23 mmol/L (23-31); Chloride 108 mmol/L (98-107); Estimated GFR 72; Globulin 3.8 g/dL (2.4-3.5); Glucose 94 mg/dL (80-115); Potassium 4.3 mmol/L (3.5-5.1); Protein, Total 6.2 g/dL (5.8-8.1); Sodium 137 mmol/L (136-145)
[2023-06-09] MEDS: Sodium Bicarbonate Tab 325 MG TAB PO SCH ×2 (10:30→14:14)
[2023-06-09] MEDS: Fluticasone Propionate Nasal Spray 16 gm Bottle NASAL SCH (10:31)
[2023-06-09 15:36] VITALS: BP 115/73; TEMP 97
== END 2023-06-09 15:35 | DRG 70 ==
LOC: ERS 11:07 → ERHOLD 13:50 → OBSVTOIN 14:40 → IMCU/EMU 18:19 → T4-B 06-02 11:01
PROVIDERS: ADMIT Family Medicine; ATTEND Hospitalist
PROC: 0DH63UZ Insertion of Feeding Device into Stomach, Percutaneous Approach (ICD-10-PCS; principal; 2023-06-03)
DX: G93.41 Metabolic encephalopathy (principal); E43 Unspecified severe protein-calorie malnutrition; E87.20 Acidosis, unspecified; N17.9 Acute kidney failure, unspecified; N39.0 Urinary tract infection, site not specified; R64 Cachexia; Z68.1 Body mass index [BMI] 19.9 or less, adult; I74.09 Other arterial embolism and thrombosis of abdominal aorta; M31.9 Necrotizing vasculopathy, unspecified; E87.1 Hypo-osmolality and hyponatremia; Z51.5 Encounter for palliative care; F10.10 Alcohol abuse, uncomplicated; F17.210 Nicotine dependence, cigarettes, uncomplicated; R31.0 Gross hematuria; R53.1 Weakness; T68.XXXA Hypothermia, initial encounter; R13.10 Dysphagia, unspecified; I45.81 Long QT syndrome; N18.30 Chronic kidney disease, stage 3 unspecified; I12.9 Hypertensive chronic kidney disease with stage 1 through stage 4 chronic kidney disease, or unspecified chronic kidney disease; J44.9 Chronic obstructive pulmonary disease, unspecified; R13.12 Dysphagia, oropharyngeal phase; D63.1 Anemia in chronic kidney disease; I71.43 Infrarenal abdominal aortic aneurysm, without rupture; K56.41 Fecal impaction; I71.40 Abdominal aortic aneurysm, without rupture, unspecified; Z90.49 Acquired absence of other specified parts of digestive tract; Z98.890 Other specified postprocedural states; Z71.6 Tobacco abuse counseling; Z71.41 Alcohol abuse counseling and surveillance of alcoholic
CPT/HCPCS: 0241U; 36415; 70450; 70490; 71045; 74174; 74176; 74230; 80053; 80306; 80307; 81001; 82533; 83605; 83690; 83735; 84100; 84145; 84443; 84484; 85025; 86780; 87040; 87086; 87389; 87498; 87505; 93005; 94760; 96365; 96367; J0696; J2001; J2704; J3010; J3411; J3475; J3480; J3490; J7042; J7050; J7120; Q9967; S0028

== ENCOUNTER 2023-07-06 20:22 | Emergency (ER) | payer MEDICARE, OTHER | END 2023-07-06 23:07 | disposition home or self-care (01) | LOC: ERS 20:22 | DX: K94.23 Gastrostomy malfunction (principal); I12.9 Hypertensive chronic kidney disease with stage 1 through stage 4 chronic kidney disease, or unspecified chronic kidney disease; N18.30 Chronic kidney disease, stage 3 unspecified; F17.210 Nicotine dependence, cigarettes, uncomplicated; Z79.899 Other long term (current) drug therapy | CPT/HCPCS: 43762; 74018 ==

== ENCOUNTER 2023-07-21 12:13 | Emergency (ER) | payer MEDICARE, OTHER ==
[2023-07-21 12:39] LABS: #Eosinphils 0.3 thou/uL (0.0-0.7); #Neutrophils 8.1 thou/uL (1.40-6.50); %Basophils 0.3 % (0.0-1.0); %Eosinophils 2.5 % (0.0-10.0); %Lymphocytes 25.9 % (21.0-51.0); %Monocytes 7.8 % (0.0-10.0); %Neutrophils 63.2 % (42.0-75.0); Hematocrit 35.5 % (42.0-52.0); Hemoglobin 11.8 g/dL (14.0-18.0); Mean Corpuscular HGB CONC 33.2 g/dL (32.0-36.0); Mean Corpuscular Hemoglobin 32.1 pg (27.0-31.0); Mean Corpuscular Volume 96.5 fl (78.0-98.0); Mean Platelet Volume 10.3 fL (7.4-10.4); Platelet Count 317 10x3/uL (130-400); RBC Distribution Width 13.3 % (11.5-14.5); Red Blood Cell (RBC) Count 3.68 mill/uL (4.70-6.10); White Blood Cell (WBC) Count 12.8 10x3/uL (4.8-10.8)
[2023-07-21 12:55] LABS: ALT (SGPT) 46 U/L (8-55); AST (SGOT) 34 U/L (5-34); Albumin 3.3 g/dL (3.4-4.8); Alkaline Phosphatase 105 U/L (40-110); Anion Gap 16 mmol/L (10-20); BUN (Urea Nitrogen) 73 mg/dL (8.4-25.7); Bilirubin, Total 0.4 mg/dL (0.2-1.2); Calc. Creatinine Clearance 0 mL/min (70-130); Calcium 9.2 mg/dL (7.8-10.44); Carbon Dioxide 27 mmol/L (23-31); Chloride 100 mmol/L (98-107); Estimated GFR 45; Globulin 5.4 g/dL (2.4-3.5); Glucose 78 mg/dL (80-115); Potassium 3.9 mmol/L (3.5-5.1); Protein, Total 8.7 g/dL (5.8-8.1); Sodium 139 mmol/L (136-145)
[2023-07-21 16:43] LABS: Anion Gap 16 mmol/L (10-20); BUN (Urea Nitrogen) 68 mg/dL (8.4-25.7); Calc. Creatinine Clearance 0 mL/min (70-130); Calcium 8.5 mg/dL (7.8-10.44); Carbon Dioxide 24 mmol/L (23-31); Chloride 104 mmol/L (98-107); Estimated GFR 53; Glucose 81 mg/dL (80-115); Potassium 3.9 mmol/L (3.5-5.1); Sodium 140 mmol/L (136-145)
== END 2023-07-21 17:33 ==
LOC: ERS 12:13
DX: E86.0 Dehydration (principal); F17.210 Nicotine dependence, cigarettes, uncomplicated; I12.9 Hypertensive chronic kidney disease with stage 1 through stage 4 chronic kidney disease, or unspecified chronic kidney disease; N18.30 Chronic kidney disease, stage 3 unspecified; E21.3 Hyperparathyroidism, unspecified; Z79.899 Other long term (current) drug therapy
CPT/HCPCS: 36416; 80053; 85025; 96360